=== PATIENT | female | born 1975 | race Caucasian/White ===

== ENCOUNTER 2017-01-09 13:45 | Emergency (ER) | payer SELFPAY ==
--- NOTE | 2017-01-09 13:49 | UC ---
Respiratory Complaint HPI - HPI Summary HPI Summary: 41 YEAR OLD FEMALE PRESENTS WITH COMPLAINS OF SINUS CONGESTION, COUGH AND SORE THROAT. - History of Current Complaint Stated Complaint: CONGESTION RESPIRATORY Time Seen by Provider: 01/09/17 13:48 Hx Obtained From: Patient Hx Last Menstrual Period: 06/14/15 Onset/Duration: Sudden Onset Severity Initially: Moderate Severity Currently: Moderate Pain Scale Used: 0-10 Numeric - 0 - Allergies/Home Medications Allergies/Adverse Reactions: Allergies Allergy/AdvReac Type Severity Reaction Status Date / Time Penicillins Allergy Hives Verified 01/09/17 13:52 seasonal Allergy Congestion Uncoded 01/09/17 13:52 Home Medications: Home Medications Acetaminophen [Acetaminophen Extra Stren] 500 mg PO Q4H PRN 01/09/17 [History Confirmed 01/09/17] PMH/Surg Hx/FS Hx/Imm Hx Previously Healthy: Yes - Surgical History Surgical History: Yes Surgery Procedure, Year, and Place: tubal ligation, tubes in ears as child - Family History Known Family History: Positive: None - Social History Alcohol Use: Rare Substance Use Type: None Smoking Status (MU): Light Every Day Tobacco Smoker Review of Systems Constitutional: Negative Skin: Negative Eyes: Negative ENT: Sore Throat, Nasal Discharge, Sinus Congestion, Sinus Pain/Tenderness Respiratory: Cough Cardiovascular: Negative Gastrointestinal: Negative Genitourinary: Negative Motor: Negative Neurovascular: Negative Musculoskeletal: Negative Neurological: Negative Psychological: Negative Is Patient Immunocompromised?: Yes All Other Systems Reviewed And Are Negative: Yes Physical Exam Triage Information Reviewed: Yes Appearance: Well-Appearing Eye Exam: Normal ENT: Positive: Pharyngeal erythema, Nasal congestion, Nasal drainage, TM red, Other: - LEFT OTITS EXTERNA ERYTHEMA Dental Exam: Normal Neck exam: Normal Neck: Positive: 1 Respiratory: Positive: Rhonchi, Wheezing Cardiovascular Exam: Normal Abdominal Exam: Normal Musculoskeletal Exam: Normal Neurological Exam: Normal Psychological Exam: Normal Skin Exam: Normal Respiratory Course/Dx - Differential Dx/Diagnosis Provider Diagnoses: SINUSITIS. LEFT OTITS EXTERNA. COUGH Discharge - Discharge Plan Condition: Stable Disposition: HOME Prescriptions: Albuterol HFA INHALER* [Ventolin HFA Inhaler*] 1 puff INH Q6H PRN #1 mdi PRN Reason: Wheezing Azithromyxin CARTER (NF) [Z-Carter (Zithromax) 250 mg tabs #6] 2 tab PO .TODAY, THEN 1 DAILY #6 tab Methylprednisolone [Medrol Dosepak 4 MG*] 4 mg PO .SEE CARTER INSTRUCTION #21 tab guaiFENesin/CODIEN 100MG-10MG* [Robitussin AC 100Mg-10Mg*] 5 ml PO Q8H PRN #120 ml MDD 15 ML PRN Reason: Cough Patient Education Materials: Sinusitis (ED), Acute Cough (ED) Forms: *Work Release Referrals: JAZMYNE Higgins [[facility].BUSINESS, APPLICATION, OTHER] -
[2017-01-09 13:56] VITALS: BP 135/87
== END 2017-01-09 14:15 | disposition home or self-care (01) ==
LOC: UCCORT 13:45
DX: J32.0 Chronic maxillary sinusitis (principal); H60.92 Unspecified otitis externa, left ear; R05 Cough; Z72.0 Tobacco use
CPT/HCPCS: 99212; G0463

== ENCOUNTER 2017-04-17 11:14 | Emergency (ER) | payer SELFPAY ==
[2017-04-17 11:42] VITALS: BP 133/79
--- NOTE | 2017-04-17 13:07 | UC ---
FLU HPI - HPI Summary HPI Summary: Pt c/o myalgia, fatigue, VELASQUEZ, "GI upset" nasal congestion X 1 day, and with known exposure to influenza. - History of Current Complaint Chief Complaint: UCRespiratory Stated Complaint: FLU SYMPTOMS Time Seen by Provider: 04/17/17 12:53 Hx Obtained From: Patient Hx Last Menstrual Period: yesterday ?: No Onset/Duration: Sudden Onset, Still Present Severity Currently: Mild Severity Initially: Mild Associated Signs & Symptoms: Positive: Myalgia, Nasal Congestion, Headache Related Hx: Possible Flu/Infectious Exposure, Smoking - Risk Factors Influenza Risk Factors: Negative - Allergy/Home Medications Allergies/Adverse Reactions: Allergies Allergy/AdvReac Type Severity Reaction Status Date / Time Penicillins Allergy Hives Verified 04/17/17 11:42 seasonal Allergy Congestion Uncoded 04/17/17 11:42 PMH/Surg Hx/FS Hx/Imm Hx Previously Healthy: Yes - Surgical History Surgical History: Yes Surgery Procedure, Year, and Place: tubal ligation, tubes in ears as child - Family History Known Family History: Positive: Cardiac Disease - Social History Occupation: Employed Full-time Lives: With Family Alcohol Use: Rare Substance Use Type: None Smoking Status (MU): Light Every Day Tobacco Smoker Type: Cigarettes Amount Used/How Often: 1/2 - 1 PPD Length of Time of Smoking/Using Tobacco: Since Age 15 Have You Smoked in the Last Year: Yes Household Exposure Type: Cigarettes - Immunization History Most Recent Influenza Vaccination: Not the Season Review of Systems Constitutional: Chills, Fatigue Skin: Negative Eyes: Negative ENT: Sore Throat, Sinus Congestion, Sinus Pain/Tenderness Respiratory: Cough Cardiovascular: Negative Gastrointestinal: Negative Genitourinary: Negative Motor: Negative Neurovascular: Negative Musculoskeletal: Myalgia Neurological: Headache Psychological: Negative Is Patient Immunocompromised?: No All Other Systems Reviewed And Are Negative: Yes Physical Exam Triage Information Reviewed: Yes Appearance: Ill-Appearing Vital Signs: Initial Vital Signs Temp 99 F 04/17/17 11:33 Pulse 103 04/17/17 11:33 Resp 18 04/17/17 11:33 BP 133/79 04/17/17 11:33 Pulse Ox 100 04/17/17 11:33 Eye Exam: Normal ENT Exam: Other ENT: Positive: Nasal congestion Neck exam: Normal Respiratory Exam: Normal Cardiovascular Exam: Normal Musculoskeletal Exam: Normal Neurological Exam: Normal Psychological Exam: Normal Skin Exam: Normal Flu Course/Dx - Course Course Of Treatment: Negative rapid flu test - Differential Dx/Diagnosis Differential Diagnosis/HQI/PQRI: Bronchitis, Influenza, Upper Respiratory Infection Provider Diagnoses: viral syndrome Discharge - Discharge Plan Condition: Stable Disposition: HOME Patient Education Materials: Viral Syndrome (ED) Forms: *Work Release Referrals: [facility] [Outside] No Primary Care Phys,NOPCP [Primary Care Provider] - If Needed
== END 2017-04-17 13:20 | disposition home or self-care (01) ==
LOC: UCCORT 11:14
DX: B34.9 Viral infection, unspecified (principal); Z88.0 Allergy status to penicillin; F17.210 Nicotine dependence, cigarettes, uncomplicated
CPT/HCPCS: 87502; 99211; G0463